=== PATIENT | female | born 1970 | race Caucasian/White ===

== ENCOUNTER 2019-10-11 07:42 | Outpatient (CLI) | payer BC ==
[2019-10-11 12:20] LABS: BASOPHILS % (AUTO) 0.5 %; EOSINOPHILS # (AUTO) 0.1 10^3/uL (0.0-0.7); HGB - HEMOGLOBIN 14.9 g/dL (12.0-16.0); LYMPHOCYTES # (AUTO) 2.1 10^3/uL (1.5-3.5); LYMPHOCYTES % (AUTO) 36.2 %; MEAN CORPUSCULAR HEMOGLOBIN 30.2 pg (27.0-31.0); MEAN CORPUSCULAR HGB CONC 34.2 g/dL (32.0-36.0); MEAN CORPUSCULAR VOLUME 88.3 fL (81.0-99.0); MONOCYTES # (AUTO) 0.5 10^3/uL (0.0-1.0); NEUTROPHILS # (AUTO) 3.1 10^3/uL (1.5-6.6); PLT - PLATELET COUNT 230 10^3/uL (130-450); RED BLOOD COUNT 4.94 10^6/uL (4.20-5.40); RED CELL DISTRIBUTION WIDTH 12.5 % (12.0-15.0); WHITE BLOOD COUNT 5.9 x10^3/uL (4.8-10.8)
[2019-10-11 12:54] LABS: HB2 TOTAL 15.4 g/dL; HEMOGLOBIN A1C 0.47 g/dL; HEMOGLOBIN A1C % 4.9 % (4.6-6.2)
[2019-10-11 12:55] LABS: ALBUMIN 4.3 g/dL (3.2-5.5); ALBUMIN/GLOBULIN RATIO 1.3 (1.0-2.2); ALKALINE PHOSPHATASE 52 IU/L (42-121); ALT ALANINE AMINOTRANSFERASE 13 IU/L (10-60); AST ASPARTATE AMINOTRANSFERASE 16 IU/L (10-42); BILIRUBIN,TOTAL 0.7 mg/dL (0.2-1.0); BUN - BLOOD UREA NITROGEN 16 mg/dL (6-20); CALCIUM 9.5 mg/dL (8.5-10.3); CARBON DIOXIDE - CO2 25 mmol/L (21-32); CHLORIDE 108 mmol/L (101-111); CHOLESTEROL 190 mg/dL; CREATININE 0.8 mg/dL (0.4-1.0); GFR - MDRD 77 (>89); GLUCOSE 85 mg/dL (70-100); HDL CHOLESTEROL 63 mg/dL; LDL CHOLESTEROL,CALCULATED 107 mg/dL; LDL/HDL RATIO 1.7 (<4.4); SODIUM 140 mmol/L (135-145); TOTAL PROTEIN 7.5 g/dL (6.7-8.2); VLDL CHOLESTEROL 20 mg/dL
== END 2019-10-11 23:59 | disposition home or self-care (01) ==
LOC: LAB.N 07:42
PROVIDERS: ATTEND Family Medicine
DX: Z00.00 Encounter for general adult medical examination without abnormal findings (principal)
CPT/HCPCS: 36415; 80053; 80061; 83036; 83721; 84443; 85025

== ENCOUNTER 2019-11-30 09:54 | Outpatient (CLI) | payer BC | END 2019-11-30 09:55 | disposition critical access hospital (66) | LOC: EMS 09:54 | PROVIDERS: ATTEND Surgery | DX: M79.622 Pain in left upper arm (principal) | CPT/HCPCS: A0425; A0427 ==

== ENCOUNTER 2019-11-30 10:12 | Emergency (ER) | payer BC ==
--- NOTE | 2019-11-30 10:42 | ED Physician Documentation ---
PD HPI CHEST PAIN - Stated complaint Stated Complaint: CHEST PAIN - History obtained from History obtained from: Patient, EMS - Additional information Additional information: Patient comes emergency department complaining of left axillary pain that started around 0930. 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 She states that suddenly, she noted a sharp pain that started in her left axilla and shot up into her neck then radiated down her left arm. Patient denies any actual chest pain. She states that she did not have any nausea. She did not feel particularly short of breath when it happened, though she began to feel somewhat panicky and felt her respirations increased at that time. She states she felt sweaty over her whole body. Coworkers called EMS, who gave the patient a total of [address] to the emergency department. Patient initially was rating her pain a 10 out of 10, and In route, the pain decreased to a 5 out of 10. Patient was given an IV dose of morphine 2 mg, which made her itchy, but did largely resolve the rest of the pain. Patient states she has a dull ache in her axilla now. She states she has not had any previous history of cardiac issues that she knows of. She has not noticed any decrease exertional tolerance recently. She states she does not exercise much, but has not noticed increased shortness of breath with regular activities. Patient does note that she has not slept more than 4 hours a night in the last several months, and that she feels generally tired all the time. However, this does not seem worse than usual lately. Patient has a history of hypertension for which she takes lisinopril. She was a smoker until about 5 months ago, when she quit. She does note that her mother had an MO at age 48, and went on to have several other MIs after that. Her maternal grandmother also had an MO. Patient denies any other complaints at this time. She does note that she has a an appointment with her primary care physician tomorrow to see how she is doing on her lisinopril. Review of Systems Ten Systems: 10 systems reviewed and negative Constitutional: reports: Reviewed and negative Eyes: reports: Reviewed and negative Ears: reports: Reviewed and negative Nose: reports: Reviewed and negative Throat: reports: Reviewed and negative Cardiac: reports: Chest pain / pressure. denies: Palpitations, Pedal edema, Calf pain Respiratory: reports: Reviewed and negative GI: reports: Reviewed and negative : reports: Reviewed and negative Skin: reports: Reviewed and negative Musculoskeletal: reports: Reviewed and negative Neurologic: reports: Reviewed and negative Psychiatric: reports: Reviewed and negative Endocrine: reports: Reviewed and negative Immunocompromised: reports: Reviewed and negative PD PAST MEDICAL HISTORY - Present Medications Home Medications: Ambulatory Orders Medication Instructions Recorded Confirmed Aspirin Chewable [St Shaun 81 mg PO DAILY 30 Days #30 tablet 11/30/19 Aspirin] Estradiol 0.05 mg Patch [[place] 1 patch Q7D 11/30/19 11/30/19 0.05 mg] Ketorolac Tromethamine 10 mg PO PRN 11/30/19 Lisinopril [Prinivil] 10 mg PO DAILY 11/30/19 11/30/19 - Allergies Allergies/Adverse Reactions: Allergies Allergy/AdvReac Type Severity Reaction Status Date / Time contrast dye Allergy Unknown Uncoded 11/30/19 10:43 PD ED PE NORMAL - Vitals Vital signs reviewed: Yes - General General: Alert and oriented X 3, No acute distress, Well developed/nourished - HEENT HEENT: Atraumatic, PERRL, EOMI, Moist mucous membranes - Neck Neck: Supple, no meningeal sign - Cardiac Cardiac: RRR, No murmur - Respiratory Respiratory: No respiratory distress, Clear bilaterally - Abdomen Abdomen: Soft, Non tender, Non distended - Back Back: Other (full rom grossly) - Derm Derm: Normal color, Warm and dry, No rash - Extremities Extremities: No deformity, No edema, No calf tenderness / cord - Neuro Neuro: Alert and oriented X 3, 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, No motor deficit, Normal speech - Psych Psych: Normal mood, Normal affect Results - Vitals Vitals: Oxygen O2 Source Room air - EKG (time done) 1033 Rate: Rate (enter#) (52) Rhythm: Sinus bradycardia [place]: Normal Intervals: Other (NSIVCD) QRS: Normal Ischemia: Normal ST segments Other comments: Other comments (PAC occasional) Compare to prior EKG: Old EKG unavailable Computer interpretation: Agree with computer - Labs Labs: Laboratory Tests 11/30/19 11/30/19 11/30/19 10:54 10:54 10:54 WBC 6.6 RBC 4.55 Hgb 13.6 Hct 40.8 MCV 89.7 MCH 29.9 MCHC 33.3 RDW 12.9 Plt Count 215 MPV 9.6 Neut # (Auto) 3.3 Lymph # (Auto) 2.7 [place] # (Auto) 0.4 Eos # (Auto) 0.1 Baso # (Auto) 0.0 Absolute Nucleated RBC 0.00 Nucleated RBC % 0.0 PT 11.8 INR 1.0 Sodium 139 Potassium 3.6 Chloride 106 Carbon Dioxide 23 Anion Gap 10.0 BUN 14 Creatinine 0.6 Estimated GFR (MDRD) 107 Glucose 89 Calcium 9.0 Total Bilirubin 0.3 AST 17 ALT 16 Alkaline Phosphatase 50 Troponin I High Sens Total Protein 7.4 Albumin 4.2 Globulin 3.2 Albumin/Globulin Ratio 1.3 Lipase 35 Urine Color Urine Clarity Urine pH Ur Specific [place] Urine Protein Urine Glucose (UA) Urine Ketones Urine Occult Blood Urine Nitrite Urine Bilirubin Urine Urobilinogen Ur Leukocyte Esterase Urine RBC Urine WBC Ur Squamous Epith Cells Urine Bacteria Ur Microscopic Review Urine Culture Comments 11/30/19 11/30/19 11/30/19 10:54 11:10 13:12 WBC RBC Hgb Hct MCV MCH MCHC RDW Plt Count MPV Neut # (Auto) Lymph # (Auto) [place] # (Auto) Eos # (Auto) Baso # (Auto) Absolute Nucleated RBC Nucleated RBC % PT INR Sodium Potassium Chloride Carbon Dioxide Anion Gap BUN Creatinine Estimated GFR (MDRD) Glucose Calcium Total Bilirubin AST ALT Alkaline Phosphatase Troponin I High Sens 4.0 5.0 Total Protein Albumin Globulin Albumin/Globulin Ratio Lipase Urine Color YELLOW Urine Clarity HAZY Urine pH 6.0 Ur Specific [place] 1.020 Urine Protein NEGATIVE Urine Glucose (UA) NEGATIVE Urine Ketones NEGATIVE Urine Occult Blood TRACE-LYSE Urine Nitrite NEGATIVE Urine Bilirubin NEGATIVE Urine Urobilinogen 0.2 (NORMAL) Ur Leukocyte Esterase NEGATIVE Urine RBC 0-5 Urine WBC 0-3 Ur Squamous Epith Cells MOD Squamous H Urine Bacteria Moderate H Ur Microscopic Review INDICATED Urine Culture Comments NOT INDICATED - Rads (name of study) cxr Radiology: Final report received, EMP read indepedently, See rad report (negative) PD MEDICAL DECISION MAKING - ED course Complexity details: reviewed results, re-evaluated patient, considered differential, d/w patient ED course: Patient was worked up with labs, EKG, and chest x-ray initially. She had already received 325 mg of aspirin at the clinic. Initial workup was negative, so repeat troponin was sent approximately 2 hours after the first, and also found to be negative. We discussed the findings and differential diagnosis. The pt actually already had an appointment with her doctor the next day, and I have advised her to talk to her doctor about having a follow-up stress test scheduled for the near future to further evaluate her potential for CAD. We have discussed the need for return, should her sx recur or worsen. Departure - Departure Disposition: 01 Home, Self Care Clinical Impression: Left axillary pain Condition: Stable Instructions: ED Chest Pain Atypical Unkn Cause Prescriptions: Aspirin Chewable [St Shaun Aspirin] 81 mg PO DAILY 30 Days #30 tablet Comments: Your labs, EKG, and chest x-ray all look good. Your repeat cardiac enzymes do not show any significant change in value which would suggest that you have had a heart attack today. It is not clear what has caused your symptoms. You have some risk factors for heart disease, but lifestyle can mitigate many of these. When you see your doctor tomorrow, please discuss having a stress test done to further evaluate and see if this is more likely to be cardiac in origin or not. If you develop worsening symptoms, you will need to be reevaluated. Your urinalysis shows a mild amount of bacteria but no other findings consistent with infection. There is no evidence of stool entering your urine at this time. Please be sure to drink at least 8 cups worth of water every day and discuss further concerns with your doctor. Please take aspirin on a daily basis until cleared by your doctor peer. This is been prescribed for you. Discharge Date/Time: 11/30/19 14:19
[2019-11-30 11:02] LABS: BASOPHILS % (AUTO) 0.5 %; EOSINOPHILS # (AUTO) 0.1 10^3/uL (0.0-0.7); EOSINOPHILS % (AUTO) 1.7 %; HGB - HEMOGLOBIN 13.6 g/dL (12.0-16.0); LYMPHOCYTES # (AUTO) 2.7 10^3/uL (1.5-3.5); LYMPHOCYTES % (AUTO) 41.2 %; MEAN CORPUSCULAR HEMOGLOBIN 29.9 pg (27.0-31.0); MEAN CORPUSCULAR HGB CONC 33.3 g/dL (32.0-36.0); MEAN CORPUSCULAR VOLUME 89.7 fL (81.0-99.0); MEAN PLATELET VOLUME 9.6 fL (7.9-10.8); MONOCYTES # (AUTO) 0.4 10^3/uL (0.0-1.0); MONOCYTES % (AUTO) 6.6 %; NEUTROPHILS # (AUTO) 3.3 10^3/uL (1.5-6.6); NEUTROPHILS % (AUTO) 49.2 %; PLT - PLATELET COUNT 215 10^3/uL (130-450); RED BLOOD COUNT 4.55 10^6/uL (4.20-5.40); RED CELL DISTRIBUTION WIDTH 12.9 % (12.0-15.0); WHITE BLOOD COUNT 6.6 x10^3/uL (4.8-10.8)
[2019-11-30 11:10] LABS: PT - PROTHROMBIN TIME 11.8 secs (9.9-12.6)
[2019-11-30 11:15] LABS: ALBUMIN 4.2 g/dL (3.2-5.5); ALBUMIN/GLOBULIN RATIO 1.3 (1.0-2.2); BILIRUBIN,TOTAL 0.3 mg/dL (0.2-1.0); CREATININE 0.6 mg/dL (0.4-1.0); TOTAL PROTEIN 7.4 g/dL (6.7-8.2)
--- NOTE | 2019-11-30 11:23 | XRAY Report ---
Reason: cough Procedure Date: 11/30/2019 Accession Number: [id number] / [id number] Procedure: XR - Chest 2 View X-Ray CPT Code: 30144 Final Report FULL RESULT: EXAM: CHEST RADIOGRAPHY EXAM DATE: 11/30/2019 10:50 AM. CLINICAL HISTORY: Cough. Chest pain. COMPARISON: None. TECHNIQUE: 2 views. FINDINGS: Lungs/Pleura: No focal opacities evident. No interstitial abnormality or pulmonary vascular congestion. No pleural effusion. No pneumothorax. Normal volumes. Mediastinum: Heart and mediastinal contours are unremarkable. Other: Cholecystectomy clips. IMPRESSION: Normal 2-view chest radiography. RADIA
[2019-11-30 11:28] LABS: BILIRUBIN,URINE NEGATIVE (NEGATIVE); GLUCOSE, URINE (UA) NEGATIVE (NEGATIVE); KETONES,URINE (UA) NEGATIVE (NEGATIVE); LEUKOCYTE ESTERASE, URINE NEGATIVE (NEGATIVE); NITRITE,URINE NEGATIVE (NEGATIVE); OCCULT BLOOD,URINE TRACE-LYSE (NEGATIVE); PROTEIN,URINE NEGATIVE (NEGATIVE); UROBILINOGEN,URINE 0.2 (NORMAL) E.U./dL (NORMAL)
[2019-11-30 11:29] LABS: CLARITY,URINE HAZY (CLEAR)
[2019-11-30 11:40] LABS: BACTERIA,URINE Moderate /HPF (None Seen); RBC,URINE 0-5 /HPF (0-5); SQUAMOUS EPITHELIAL CELL,UR MOD Squamous (<= Few)
[2019-11-30] MEDS: SODIUM CHLORIDE 0.9% 1,000 ML IV ONE (11:41)
[2019-11-30 14:18] VITALS: BP 118/82
== END 2019-11-30 14:19 | disposition home or self-care (01) ==
LOC: EDUNIT# → ED 10:12
DX: M79.622 Pain in left upper arm (principal); I10 Essential (primary) hypertension; Z87.891 Personal history of nicotine dependence
CPT/HCPCS: 36415; 71046; 80053; 81001; 81003; 83690; 84484; 85025; 85610; 87086; 93005; 96360; 99284

== ENCOUNTER 2024-01-27 09:17 | Outpatient (CLI) | payer BC ==
[2024-01-27 09:54] LABS: BASOPHILS % (AUTO) 0.6 %; EOSINOPHILS # (AUTO) 0.1 10^3/uL (0.0-0.7); HCT - HEMATOCRIT 43.2 % (37.0-47.0); HGB - HEMOGLOBIN 14.2 g/dL (12.0-16.0); LYMPHOCYTES # (AUTO) 2.4 10^3/uL (1.5-3.5); LYMPHOCYTES % (AUTO) 36.6 %; MEAN CORPUSCULAR HEMOGLOBIN 30.1 pg (27.0-31.0); MEAN CORPUSCULAR HGB CONC 32.9 g/dL (32.0-36.0); MEAN CORPUSCULAR VOLUME 91.5 fL (81.0-99.0); MEAN PLATELET VOLUME 9.1 fL (7.9-10.8); MONOCYTES # (AUTO) 0.5 10^3/uL (0.0-1.0); NEUTROPHILS # (AUTO) 3.5 10^3/uL (1.5-6.6); PLT - PLATELET COUNT 228 10^3/uL (130-450); RED BLOOD COUNT 4.72 10^6/uL (4.20-5.40); RED CELL DISTRIBUTION WIDTH 12.6 % (12.0-15.0); WHITE BLOOD COUNT 6.6 x10^3/uL (4.8-10.8)
[2024-01-27 10:10] LABS: ALBUMIN/GLOBULIN RATIO 1.8 (1.0-2.2); ALKALINE PHOSPHATASE 42 IU/L (42-121); ALT ALANINE AMINOTRANSFERASE 8 IU/L (10-60); AST ASPARTATE AMINOTRANSFERASE 11 IU/L (10-42); BILIRUBIN,TOTAL 0.5 mg/dL (0.2-1.0); BUN - BLOOD UREA NITROGEN 12 mg/dL (6-20); CALCIUM 9.3 mg/dL (8.5-10.3); CARBON DIOXIDE - CO2 27 mmol/L (21-32); CHLORIDE 110 mmol/L (101-111); CHOL/HDL RATIO 3.1 (<4.4); CHOLESTEROL 177 mg/dL; GFR - MDRD 58 (>89); GLUCOSE 92 mg/dL (74-104); HDL CHOLESTEROL 57 mg/dL; LDL CHOLESTEROL,CALCULATED 92 mg/dL; LDL/HDL RATIO 1.6 (<4.4); SODIUM 140 mmol/L (135-145); TOTAL PROTEIN 6.2 g/dL (6.4-8.9); TRIGLYCERIDES 140 mg/dL (48-352); VLDL CHOLESTEROL 28 mg/dL
[2024-01-27 10:25] LABS: THYROID STIMULATING HORMONE 4.08 uIU/mL (0.34-5.60)
--- NOTE | 2024-01-27 14:43 | Ultrasound Report ---
PROCEDURE: Soft Tissue Head or Neck INDICATIONS: THYROID CYST TECHNIQUE: Real-time scanning was performed of the thyroid gland, with image documentation. COMPARISON: None FINDINGS: Right: Thyroid lobe measures 5.4 x 1.6 x 1.6 cm. Left: Thyroid lobe measures 4.5 x 1.0 x 1.6 cm Isthmus: 0.8 cm thick. Echotexture: Homogeneous. Nodule number: 1 Location: Isthmus Size: 2.1 x 2.6 x 1.1 cm. Composition: Solid (2 points). Echogenicity: Hypoechoic (2 points). Shape: wider than tall (0 points). Margins: Smooth (0 points). Echogenic foci: None (0 points). Total points: 4 ACR TI-RADS category: TI-RADS 4: Moderately suspicious. Nodule number: 2 Location: Right lower pole Size: 0.7 x 0.7 x 0.5 cm. Composition: Mixed cystic and solid (1 point). Echogenicity: Isoechoic (1 point). Shape: wider than tall (0 points). Margins: Smooth (0 points). Echogenic foci: None (0 points). Total points: 2 ACR TI-RADS category: TI-RADS 2: Not suspicious. IMPRESSION: A 2.6 cm Isthmus thyroid nodule is moderately suspicious by imaging criteria. The patien t describes a history of a previous benign biopsy of this lesion. Comment: Recommend comparison with previous studies. Consider confirmation of previous biopsy results . Additionally, if this nodule has increased in size, would consider repeat ultrasound-guided FNA. Comment: Please refer to definitions and recommendations below. ACR TI-RADS definitions and recommendations: TI-RADS 1 (benign): 0 points. FNA not needed. TI-RADS 2 (not suspicious): 2 points. FNA not needed. TI-RADS 3 (mildly suspicious): 3 points. "FNA if 2.5 cm or larger, follow up if 1.5 cm or larger (at 1, 3, and 5 years). TI-RADS 4 (moderately suspicious): 4-6 points. "FNA if 1.5 cm or larger, follow up if 1 cm or larger (at 1, 2, 3, and 5 years). TI-RADS 5 (highly suspicious): 7 points or more. "FNA if 1 cm or larger, follow up if 0.5 cm or larger (every year for 5 years). Reviewed by: Jose Miguel Dunn MD on 01/27/2024 2:42 PM PDT Approved by: Jose Miguel Dunn MD on 01/27/2024 2:42 PM PDT Station ID: [id number]
== END 2024-01-27 09:18 | disposition home or self-care (01) ==
LOC: DI 09:17
PROVIDERS: ATTEND Nurse Practitioner Family
DX: E04.1 Nontoxic single thyroid nodule (principal); E04.2 Nontoxic multinodular goiter; K92.2 Gastrointestinal hemorrhage, unspecified; R63.5 Abnormal weight gain; I10 Essential (primary) hypertension
CPT/HCPCS: 36415; 80053; 80061; 82306; 83721; 84443; 85025